=== PATIENT | male | born 1950 | race Caucasian/White ===

== ENCOUNTER 2016-12-23 11:13 | Inpatient (IN) | payer MEDICARE, BC ==
[~2016-12-23] VITALS: Ht 177.8 cm; Wt 71.0 kg
--- NOTE | ~2016-12-23 | DS ---
PATIENT'S NAME: TARA MORA [facility] AGE: 66 Y [address] ROOM: [address] [address] LOCATION: [facility] ADMIT DATE: 12/23/2016 Discharge Summary DISCHARGE DATE: 12/26/2016 FAMILY PHYSICIAN: Lawrence Echeverria MD ATTENDING PHYSICIAN: Lee Mcfarland ADMITTING DIAGNOSIS: Intertrochanteric fracture, right hip. PROCEDURE: Open reduction and internal fixation with a long TFN. HOSPITAL COURSE: The patient was admitted to the hospital after a fall. He was unable to bear weight. He was found to have an intertrochanteric fracture of the right hip. He had preoperative risk evaluation done by Dr. Bertrand of the [facility]. Once the patient was deemed suitable surgical candidate, he was taken to the operating room, a long TFN was placed. Postoperatively, hemoglobin is 12.9, LEGAL OFFICE ADMINISTRATOR was intact to the operative foot. On postop day 1, pain was reasonably well-controlled with oral pain medications, by day 2, and he was ambulating well and getting around without assistance. On postop day 2, the patient was discharged to home. DISCHARGE INSTRUCTIONS: Follow up with myself in 6-12 days. Follow up with Dr. Hunt in 3 weeks. Keep wound clean, dry, and covered. Resume prehospitalization medication regimen with the following additions or changes: 1. Colace 100 mg p.o. b.i.d. as needed for constipation. 2. Percocet 5/325 1 p.o. q.3 h. p.r.n. pain, dispensed 36. 3. Florence dispensed 24 p.r.n. pain. FERNIE EMERSON FOR MD JAYLEN FERGUSON/fransisco /[id number] d: 01/19/17 0205 t: 01/30/17 0942, DISCHARGE SUMMARY
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
[2016-12-23 12:08] LABS: BASOPHIL % 0.3 %; EOSINOPHIL # 0.1 K/uL (0.0-0.5); EOSINOPHIL % 0.5 %; HEMATOCRIT 43.6 % (37.0-53.0); HEMOGLOBIN 14.5 g/dL (11.0-16.0); IMMATURE GRANULOCYTE % 0.4 %; LYMPHOCYTE # 1.1 K/uL (0.8-4.0); LYMPHOCYTE % 9.7 %; MCH 30.7 pg (27.0-34.0); MCHC 33.3 gm/dL (32.0-36.5); MCV 92.4 fl (83.0-98.0); MONOCYTE # 0.7 K/uL (0.0-1.0); MONOCYTE % 6.2 %; MPV 9.2 fl (9.4-12.4); NEUTROPHIL # (ANC) 9.3 K/uL (1.4-9.0); NEUTROPHIL % 82.9 %; NRBC % 0 /100WBC (0-0.00); PLATELET COUNT 236 K/uL (150-450); RBC 4.72 M/uL (3.50-5.50); RDW-CV 12.7 % (11.9-14.6); WBC 11.2 K/uL (4.0-11.0)
[2016-12-23 12:25] LABS: ALBUMIN 3.9 gm/dL (3.5-5.0); ALK PHOS 55 IU/L (33-138); ALT 29 IU/L (12-78); ANION GAP 15.1 (10.0-19.0); AST 28 IU/L (10-40); BLOOD UREA NITROGEN 21 mg/dL (6-24); CALCIUM 8.6 mg/dL (8.5-10.5); CHLORIDE 105 mMol/L (96-110); CO2 24 mMol/L (22-32); ESTIMATED GFR (MDRD EQUATION) > 60; POTASSIUM 4.1 mMol/L (3.7-5.1); SODIUM 140 mMol/L (135-145); TOTAL BILIRUBIN 0.8 mg/dL (0.0-1.5); TOTAL PROTEIN 7.3 g/dL (6.0-8.4)
[2016-12-23 12:48] LABS: PROTIME 10.9 SECONDS (9.6-11.1)
[2016-12-23 15:30] LABS: BILIRUBIN URINE NEGATIVE (NEGATIVE); BLOOD URINE 25 /UL (NEGATIVE); COLOR URINE YELLOW (YELLOW); GLUCOSE URINE NEGATIVE (NEGATIVE); KETONE URINE 50 mg/dL (NEGATIVE); LEUKOCYTES URINE NEGATIVE /UL (NEGATIVE); NITRITE URINE NEGATIVE (NEGATIVE); PROTEIN URINE NEGATIVE (NEGATIVE); SPEC GRAVITY URINE 1.015 (1.003-1.035); TURBIDITY URINE CLEAR (CLEAR); UROBILINOGEN URINE NORMAL (NORMAL)
[2016-12-23 15:50] LABS: BACTERIA URINE FEW (NEGATIVE); RBC URINE 0-2 #/HPF (NEGATIVE)
[2016-12-23 15:51] LABS: MUCUS URINE 1+ (NEGATIVE)
[2016-12-23] MEDS ORDERED: PROTONIX40 MG PO (16:10)
[2016-12-23] MEDS ORDERED: PROSCAR5 MG PO (16:10)
[2016-12-23] MEDS ORDERED: FLOMAX0.4 MG PO (16:11)
[2016-12-23] MEDS ORDERED: LIPITOR40 MG PO (16:12)
[2016-12-25 05:50] LABS: BASOPHIL % 0.1 %; HEMATOCRIT 37.1 % (37.0-53.0); HEMOGLOBIN 12.4 g/dL (11.0-16.0); IMMATURE GRANULOCYTE % 0.3 %; LYMPHOCYTE # 0.9 K/uL (0.8-4.0); MCH 30.4 pg (27.0-34.0); MCHC 33.4 gm/dL (32.0-36.5); MCV 90.9 fl (83.0-98.0); MONOCYTE # 0.9 K/uL (0.0-1.0); MONOCYTE % 9.4 %; MPV 9.5 fl (9.4-12.4); NEUTROPHIL # (ANC) 7.7 K/uL (1.4-9.0); NEUTROPHIL % 81.2 %; NRBC % 0 /100WBC (0-0.00); PLATELET COUNT 198 K/uL (150-450); RBC 4.08 M/uL (3.50-5.50); RDW-CV 12.7 % (11.9-14.6); WBC 9.5 K/uL (4.0-11.0)
[2016-12-26] MEDS ORDERED: ASPIRIN325 MG PO (12:26)
[2016-12-26] MEDS ORDERED: PERCOCET 5-3251 EACH PO (12:28)
[2016-12-26] MEDS ORDERED: NORCO 5-325 TA1 EACH PO (12:30)
== END 2016-12-26 12:43 | disposition disaster alternative care site (69) | DRG 482 ==
LOC: GACC 11:13 → GMSU 14:01 → G3N 14:01
PROVIDERS: Emergency Medicine; Orthopaedic Surgery; ADMIT Orthopaedic Surgery
PROC: 0QS604Z Reposition Right Upper Femur with Internal Fixation Device, Open Approach (ICD-10-PCS; principal; 2016-12-24)
DX: S72.141A Displaced intertrochanteric fracture of right femur, initial encounter for closed fracture (principal); E78.5 Hyperlipidemia, unspecified; E78.00 Pure hypercholesterolemia, unspecified; H26.9 Unspecified cataract; K21.9 Gastro-esophageal reflux disease without esophagitis; N40.0 Benign prostatic hyperplasia without lower urinary tract symptoms; Z87.438 Personal history of other diseases of male genital organs; Z87.891 Personal history of nicotine dependence
CPT/HCPCS: C1713; J0131; J0690; J1100; J2250; J2270; J2405; J3010; J7050; J7120